=== PATIENT | female | born 1955 | race Hispanic/Latino ===

== ENCOUNTER → 2023-02-26 | Day surgery (SDC) | payer MEDICARE ==
[~2023-02-26] MED LIST: ASPIRIN81 MG PO; ATORVASTATIN CA20 MG PO; BUPIVACAINE 0.25% 30ML SDV ONE; CYCLOBENZAPRINE10 MG PO; DEXAMETHASONE SOD PHOS INJ 4 MG/ML SDV ONE; DICLOFENAC35 MG; ESTROGENS CONJUGATED VAGINAL CR 45 GM TUBE PV ONE; FENTANYL CITRATE/PF 100MCG/2 ML INJ ONE; FISH OIL OMEGA1 EACH; GLYCOPYRROLATE INJ 0.2 MG/ML VIAL ONE; KETOROLAC TROMETHAMINE 30 MG/ML VIAL ONE; LACTATED RINGER'S 1,000 ML ONE; LIDOCAINE 1% W/EPINEPHRINE 20 ML VIAL ONE; LIDOCAINE HCL 2% LOCAL INJ 5 ML SDV VIAL INJ ONE; LISINOPRIL2.5 MG PO; LYRICA50 MG PO; METFORMIN HCL500 M2 PO; MIDAZOLAM HCL 2 MG/2 ML VIAL ONE; MOUNJARO2.5 MG/0.5; NEOSTIGMINE 1 MG/ML 10ML VIAL ONE; OMEPRAZOLE40 MG PO; ONDANSETRON HCL INJ 2MG/ML 2ML 2 MG/ML VIAL ONE; POTASSIUM; PREMARIN VAG CREAM VG; PROPOFOL IV EMULSION 10 MG/ML 20 ML VIAL ONE; ROCURONIUM BROMIDE 10 MG/ML 5ML VIAL IV ONE; SEVOFLURANE INHAL SOLN 250 ML PEN BTL ONE; SUCCINYLCHOLINE CHLORIDE 20 MG/ML 10ML VIAL ONE; TOPAMAX25 MG PO; TYLENOL WITH C1 EACH PO; VITAMIN D250000 UNIT PO; [UNRECOGNIZED DRUG - OTHER]
[2023-02-26 14:17] VITALS: TEMP 98.2
[2023-02-26 15:10] VITALS: BP 132/59; PULSE 76; RESP 16; O2SAT 96
== END | disposition home or self-care (01) ==
LOC: OR 10:21
PROVIDERS: ATTEND Obstetrics & Gynecology
DX: N81.10 Cystocele, unspecified (principal); E78.5 Hyperlipidemia, unspecified; E11.9 Type 2 diabetes mellitus without complications; E66.01 Morbid (severe) obesity due to excess calories; M54.9 Dorsalgia, unspecified; K21.9 Gastro-esophageal reflux disease without esophagitis; N20.0 Calculus of kidney; Z79.899 Other long term (current) drug therapy; Z79.84 Long term (current) use of oral hypoglycemic drugs; Z79.85 Long-term (current) use of injectable non-insulin antidiabetic drugs
CPT/HCPCS: 36415; 57240; 82948; C1758; J0330; J1100; J1885; J2001; J2250; J2405; J2704; J2710; J3010; J7121